=== PATIENT | male | born 1965 | race Caucasian/White ===

== ENCOUNTER → 2017-07-19 | Day surgery (SDC) | payer BC ==
--- NOTE | 2017-07-18 17:06 | MH ---
cc: Tala MORFIN M.D. DATE OF ADMISSION 07/19/2017 ADMISSION DIAGNOSIS Internal derangement of the right knee including cartilaginous defects involving the femoral trochlea and lateral femoral condyle and possible loose body now being admitted for arthroscopy of the right knee. HISTORY OF THE PRESENT ILLNESS A pleasant 51-year-old male who is being admitted today for arthroscopy right knee due to internal derangement right knee. PAST MEDICAL HISTORY Other past history: 1. The patient has patella tendon repair years ago. 2. He has a history of anxiety. 3. Hypertension. MEDICATIONS He takes: 1. Celexa. 2. And lisinopril. REVIEW OF SYSTEMS Noncontributory. FAMILY HISTORY Noncontributory. SOCIAL HISTORY Does not smoke. ALLERGIES Has no known allergies. PHYSICAL EXAMINATION GENERAL: We find a 51-year male well-developed, well-nourished, alert and oriented times three complaining of pain in his right knee. VITAL SIGNS: Blood pressure 120/82, pulse 96 and regular, respirations 16, temperature 98.2, pulse oximetry 99% on room air. HEENT: Eyes PERRL, EOMI. Ears, nose, mouth clear. NECK: Supple. LUNGS: Clear. CARDIOVASCULAR: Regular rate. ABDOMEN: Soft. Positive bowel sounds, nontender. EXTREMITIES: Reveal the right knee be tender with crepitance on range of motion, neurovascularly intact to his toes. IMPRESSION AT THIS TIME Internal derangement right knee with chondromalacia lateral compartment and trochlear groove. PLAN The plan is for admission for arthroscopic debridement right knee today. The patient given prescription for postoperative pain control in the office. Tala Morfin MD JRCallum/KK /4:43 PM /4:55 PM
[~2017-07-19] VITALS: Ht 193 cm; Wt 106.4 kg
[~2017-07-19] MED LIST: ACETAMINOPHEN 1000 MG/100 ML 100 ML IV ONE; ACETAMINOPHEN/HYDROcodone 325 MG/5 MG TAB PO PRN; BUPIVACAINE HCL PF 0.25% 30 ML VIAL ONE; CELE20TA PO; CHLORHEXIDINE GLUCONATE 2 % 1 PACK (2 CLOTHS) TOPICAL PRN; DEXAMETHASONE SOD PHOS 4 MG/ML VIAL IV ONE; DO NOT ADM ANY ANTICOAGULANT DRUGS PRN; FAMOTIDINE 20 MG/2 ML VIAL ONE; INSULIN HUMAN REGULAR 1,000 UNITS/10 ML VIAL SQ PRN; LACTATED RINGER'S 1000 ML IV PRN; LIDOCAINE HCL 1% PF 5 ML AMPULE OTHER ONE; LISI10TA3 PO; MEPERIDINE HCL 50 MG/ML VIAL IM PRN; METOPROLOL TARTRATE 25 MG TAB PO PRN; MIDAZOLAM HCL 2 MG/2 ML VIAL ONE; ONDANSETRON HCL 4 MG/2 ML VIAL IV PUSH ONE; ONDANSETRON ODT 4 MG TAB PO PRN; POVIDONE IODINE 5% (ANTISEPSIS KIT) 4 APPLICATIONS EACH NARE PRN; POVIDONE IODINE 7.5% SCRUB 118 ML BOTTLE TOPICAL SCH; PROPOFOL 200 MG/20 ML AMP IV ONE; SODIUM CHLORID 0.9% 500 ML IV PRN; ceFAZolin 2 GM PREMIX 50 ML IV SCH
[2017-07-19 06:44] LABS: AUTOMATED NEUTROPHIL # 4.2 TH/MM3 (1.8-7.7); BASOPHIL # 0.1 TH/MM3 (0-0.2); BASOPHIL % 1.1 % (0.0-2.0); EOSINOPHIL # 0.2 TH/MM3 (0-0.4); EOSINOPHIL % 3.1 % (0.0-4.0); HEMATOCRIT 47.5 % (39.0-51.0); HEMO FLAGS DIFF FINAL; LYMPH % 33.5 % (9.0-44.0); LYMPHOCYTE # 2.7 TH/MM3 (1.0-4.8); MEAN CELL VOLUME 85.6 FL (80.0-100.0); MEAN CORPUSCULAR HEMOGLOBIN 29.4 PG (27.0-34.0); MEAN CORPUSCULAR HGB CONC 34.3 % (32.0-36.0); MONO % 8.8 % (0.0-8.0); NEUT % 53.5 % (16.0-70.0); PLATELET COUNT 200 TH/MM3 (150-450); RED BLOOD COUNT 5.55 MIL/MM3 (4.50-5.90); RED CELL DISTRIBUTION WIDTH 12.5 % (11.6-17.2); WHITE BLOOD COUNT 7.9 TH/MM3 (4.0-11.0)
[2017-07-19 06:54] LABS: BLOOD, URINE NEG (NEG); COMMENT (UR) CULT NOT INDICATED; CULTURE IF INDICATED CULT NOT INDICATED; GLUCOSE,URINE NEG (NEG); KETONE, URINE NEG (NEG); MUCUS URINE FEW /lpf (OCC); NITRITE,URINE NEG (NEG); SQUAMOUS EPITHELIAL CELL URINE <1 /hpf (0-5); URINE COLOR YELLOW (YELLW/STRAW)
[2017-07-19 06:57] LABS: ALT (GPT) 42 U/L (12-78); ANION GAP 6 MEQ/L (5-15); AST (GOT) 30 U/L (15-37); BLOOD UREA NITROGEN 14 MG/DL (7-18); CHLORIDE 106 MEQ/L (98-107); GLOMERULAR FILTRATION RATE 68 ML/MIN (>89); SODIUM (NA) 140 MEQ/L (136-145)
[2017-07-19 06:59] LABS: ALKALINE PHOSPHATASE 55 U/L (45-117); TOTAL BILIRUBIN ADULT 0.6 MG/DL (0.2-1.0)
[2017-07-19 07:05] LABS: APTT (PATIENT) 29.2 SEC (24.3-30.1); PROTHROMBIN TIME - PATIENT 11.5 SEC (9.8-11.6)
--- NOTE | 2017-07-19 08:12 | EKG ---
Date Performed: 07/19/2017 Time Performed: 06:54:38 PTAGE: 51 years EKG: Sinus rhythm NORMAL ECG NO PREVIOUS TRACING DOCTOR: Jeni Myers Interpretating Date/Time 07/19/2017 08:11:05
--- NOTE | 2017-07-19 09:38 | HHI.PR ---
Immediate Post Op Note Procedure Date: Jul 19, 2017 Pre Op Diagnosis: Internal derangement of the right knee including cartilaginous defects involving the femoral trochlea and lateral femoral condyle Post Op Diagnosis: medial meniscus tear Chondromalacia lysis of adhesions: Arthrofibrosis: plica Surgeon: Tala Morfin MD Steward/Stewardess Third Class(s): Felicia VASQUEZ Procedure: Right Knee Arthroscopy with debridement of Complications: none Specimen(s) removed: none Estimated blood loss: 5cc Anesthesia: General Drains: None IVF Tourniquet time (min at mmHg) none Patient to: PACU Patient Condition: Good Implant/Devices: SEE IMPLANT LOG (if applicable) Date/Time of Procedure: SEE SURGICAL CARE RECORD Felicia Huang Jul 19, 2017 09:38
[2017-07-19 11:20] VITALS: BP 114/84; PULSE 98; RESP 16; TEMP 97.4; O2SAT 97
--- NOTE | 2017-07-19 11:42 | MP ---
cc: Tala BYRNE M.D. DATE OF SURGERY 07/19/2017 PREOPERATIVE DIAGNOSIS Internal derangement of right knee. POSTOPERATIVE DIAGNOSES 1. Chondromalacia medial femoral condyle grade 3. 2. Plica patellofemoral joint. 3. Synovitis. 4. Adhesions right knee. SURGERY PERFORMED Arthroscopy, excision of plica, partial synovectomy, chondroplasty medial femoral condyle and debridement of adhesions right knee joint. SURGEON Dr. Byrne JUKE BOX SERVICER CHRISTINA Gamboa ANESTHESIA LMA PROCEDURE FOLLOWS The patient was brought to the operating room and placed on the operating room table in the supine position. After successful induction of general anesthesia, the patient's right leg was prepped and draped in the usual manner. The knee was then placed in a knee baxter and tightened. Arthroscopic examination was then performed by making a stab wound over the proximal superior and medial aspect of the patellofemoral joint for insertion of the inflow cannula and fluid, followed by stab wounds over the medial and lateral joint margins respectively for insertion of the arthroscope, shaver and probe. Arthroscopic examination was then performed which revealed intact lateral compartment, grade 3 chondromalacia changes medial femoral condyle weightbearing surface, shaved smooth using the ArthroCare System. Medial meniscus found to be grossly intact. Adhesions noted from his hold patellar reconstructive surgery, attaching the intercondylar notch to the patellar tendon which were removed using the shaver and ArthroCare System. The patellofemoral joint was found to have grade 3 chondromalacia. It was shaved smooth using the ArthroCare System and a large patellofemoral plica noted on the lateral side of the patellofemoral joint, removed using shaver and ArthroCare System. Partial synovectomy performed around the medial side as well. The wound was irrigated copiously with lactated Ringer's solution. Excess fluid was removed. 10 cc of 0.25% Marcaine plain was inserted into the knee joint. The skin was approximated with interrupted 3-0 nylon suture. Wet and then dry dressing was applied to the wound followed by Xeroform gauze, sterile dressing and thigh-high Brodie wrap. TOURNIQUET TIME No tourniquet utilized. ESTIMATED BLOOD LOSS 5 cc. COUNTS Sponge and suture counts were correct. CONDITION The patient tolerated the procedure well and left the operating room in satisfactory condition. CHRISTINA Gamboa, was present during the entire procedure to include patient positioning and the procedure. The medical necessity of the nurse practitioner/chiropractor assistant was indicated in this case due to the surgical complexity of the case itself. During the surgical case the information technology officer was working at the back table while my assistant professor of music CHRISTINA was directly assisting me. J. MD TOMI Eric/DALTON /9:23 AM /11:27 AM
== END | disposition home or self-care (01) ==
LOC: HSDC 05:56
PROVIDERS: ATTEND Surgery
DX: M94.261 Chondromalacia, right knee (principal); M67.51 Plica syndrome, right knee; M65.861 Other synovitis and tenosynovitis, right lower leg; M23.8X1 Other internal derangements of right knee; I10 Essential (primary) hypertension; F41.9 Anxiety disorder, unspecified
CPT/HCPCS: 01400; 29877; 80053; 81001; 85025; 85610; 85730; 93005; J0131; J1100; J2250; J2405; J3010; J7120